=== PATIENT | male | born 1965 | race Asian ===

== ENCOUNTER 2025-07-09 17:30 | Emergency (ER) | payer OTHER ==
[~2025-07-09] VITALS: Ht 172.7 cm; Wt 72.0 kg
[2025-07-09 18:05] VITALS: TEMP 98.2
[2025-07-09 18:16] VITALS: BP 152/98; PULSE 83; RESP 18; O2SAT 99
== END 2025-07-09 18:52 | disposition home or self-care (01) ==
LOC: EMS 17:30
DX: L25.9 Unspecified contact dermatitis, unspecified cause (principal)
CPT/HCPCS: 99282; Z7502; Z7610